=== PATIENT | male | born 1975 | race Caucasian/White ===

== ENCOUNTER 2017-06-26 19:56 | Inpatient (IN) | payer MEDICAID ==
[~2017-06-26] VITALS: Ht 180.3 cm; Wt 80.9 kg
[2017-06-27] VITALS (9 sets, daily range): BP systolic 114–136; BP diastolic 66–96
[2017-06-27] MEDS: LORazepam 2 MG TABLET PO PRN (02:30)
[2017-06-27] MEDS: ZOLPIDEM TARTRATE 10 MG TABLET PO PRN (02:30)
[2017-06-27 08:20] LABS: BASOPHILS % (AUTO) 0.3 % (0.0-2.0); EOSINOPHILS % (AUTO) 0.9 % (1.0-6.0); HEMATOCRIT 38.8 % (41-53); HEMOGLOBIN 13.4 g/dL (13.5-17.5); LYMPHOCYTES # (AUTO) 0.9 K/uL (1.0-4.8); LYMPHOCYTES % (AUTO) 11.4 % (22.0-44.0); MEAN CORPUSCULAR HEMOGLOBIN 31.7 pg (26.0-34.0); MEAN CORPUSCULAR HGB CONC 34.6 G/dL (31.0-37.0); MEAN CORPUSCULAR VOLUME 92 fL (80-100); MONOCYTES # (AUTO) 0.7 K/uL (0.1-1.0); MONOCYTES % (AUTO) 8.6 % (2.0-9.0); NEUTROPHILS # (AUTO) 6.5 K/uL (1.8-7.7); NEUTROPHILS % (AUTO) 78.8 % (40.0-70.0); PLATELET COUNT (AUTO) 162 K/uL (150-450); RED BLOOD CELL COUNT(AUTO) 4.24 MIL/uL (4.50-5.90); RED CELL DISTRIBUTION WIDTH 13.9 % (11.5-14.5); WHITE BLOOD COUNT (AUTO) 8.3 K/uL (4.5-11.0)
[2017-06-27 08:53] LABS: HEMOGLOBIN A1C 5.6 % (4.5-6.2)
[2017-06-27 08:59] LABS: ALANINE AMINOTRANSFERASE 40 U/L (12-78); ALBUMIN 3.2 g/dL (3.4-5.0); ANION GAP 9 mmol/L (8-16); ASPARTATE AMINOTRANSFERASE 26 U/L (15-37); BILIRUBIN,TOTAL 0.7 mg/dL (0.1-1.0); CALCIUM, TOTAL 8.6 mg/dL (8.8-10.5); CARBON DIOXIDE 29 mmol/L (22-29); CHLORIDE 99 mmol/L (98-107); CHOL/HDL RATIO 1.5 (4.2-7.3); CREATININE 0.61 mg/dL (0.60-1.30); GLOMERULAR FILTR. RATE CALC > 60 mL/min (>60); POTASSIUM 3.4 mmol/L (3.5-5.1); SODIUM SERUM 137 mmol/L (136-145); THYROID STIMULATING HORMONE 2.94 uIU/mL (0.36-3.74); TOTAL PROTEIN, SERUM 6.2 g/dL (6.4-8.2); UREA NITROGEN, BLOOD 15 mg/dL (7-18)
[2017-06-27] MEDS ORDERED: POTASSIUM CHLORIDE 20 MEQ ER TABLET PO ONE (13:45)
[2017-06-27] MEDS: LITHIUM CARBONATE 600 MG CAPSULE PO SCH (16:32)
[2017-06-27] MEDS ORDERED: IBUPROFEN 600 MG TABLET PO PRN (20:30)
[2017-06-27] MEDS ORDERED: ACETAMINOPHEN 325 MG TABLET PO PRN (20:30)
[2017-06-27] MEDS: QUEtiapine FUMARATE 100 MG TABLET PO PRN (21:45)
[2017-06-28 03:38] VITALS: BP 117/83
[2017-06-28 07:21] VITALS: BP 121/83
[2017-06-28 07:50] LABS: ANION GAP 9 mmol/L (8-16); CALCIUM, TOTAL 8.9 mg/dL (8.8-10.5); CARBON DIOXIDE 28 mmol/L (22-29); CHLORIDE 103 mmol/L (98-107); CREATININE 0.58 mg/dL (0.60-1.30); GLOMERULAR FILTR. RATE CALC > 60 mL/min (>60); POTASSIUM 3.9 mmol/L (3.5-5.1); SODIUM SERUM 140 mmol/L (136-145); UREA NITROGEN, BLOOD 14 mg/dL (7-18)
[2017-06-28] MEDS: LITHIUM CARBONATE 300 MG CAPSULE PO SCH (08:50)
[2017-06-28] MEDS: FLUoxetine HCL 20 MG CAPSULE PO SCH (08:51)
[2017-06-28] MEDS: QUEtiapine FUMARATE 100 MG TABLET PO PRN ×2 (08:51→23:33)
[2017-06-28] MEDS: LORazepam 2 MG TABLET PO PRN ×2 (08:51→20:27)
[2017-06-28] MEDS ORDERED: FLUO-191 PO (09:10)
[2017-06-28] MEDS ORDERED: GABA-529 PO (09:10)
[2017-06-28] MEDS ORDERED: LIB10 PO (09:10)
[2017-06-28] MEDS ORDERED: LITH300C3 PO (09:10)
[2017-06-28] MEDS: LITHIUM CARBONATE 600 MG CAPSULE PO SCH (16:09)
[2017-06-28 16:19] VITALS: BP 129/73
[2017-06-28] MEDS: ZOLPIDEM TARTRATE 10 MG TABLET PO PRN (21:07)
[2017-06-29] VITALS: BP 117/70
[2017-06-29 08:41] VITALS: BP_SYST 110; BP_SYST 145; BP_DIAS 53; BP_DIAS 91
[2017-06-29] MEDS: LITHIUM CARBONATE 300 MG CAPSULE PO SCH (08:43)
[2017-06-29] MEDS: FLUoxetine HCL 20 MG CAPSULE PO SCH (08:43)
[2017-06-29] MEDS: LITHIUM CARBONATE 600 MG CAPSULE PO SCH (16:01)
[2017-06-29] MEDS ORDERED: LITH600 PO (19:57)
[2017-06-29] MEDS ORDERED: FLUO-191 PO (19:58)
[2017-06-29] MEDS: LORazepam 2 MG TABLET PO PRN (21:25)
[2017-06-29] MEDS: ZOLPIDEM TARTRATE 10 MG TABLET PO PRN (21:25)
[2017-06-30 06:18] VITALS: BP 125/86
[2017-06-30] MEDS: LITHIUM CARBONATE 300 MG CAPSULE PO SCH (08:21)
[2017-06-30] MEDS: FLUoxetine HCL 20 MG CAPSULE PO SCH (08:21)
[2017-06-30 08:24] VITALS: BP 126/90
== END 2017-06-30 10:02 | disposition home or self-care (01) | DRG 753 ==
LOC: B2S 06-27 01:05
DX: F31.5 Bipolar disorder, current episode depressed, severe, with psychotic features (principal); R45.851 Suicidal ideations; F12.90 Cannabis use, unspecified, uncomplicated; F17.200 Nicotine dependence, unspecified, uncomplicated; E87.6 Hypokalemia; F10.10 Alcohol abuse, uncomplicated; D64.9 Anemia, unspecified; Z59.0 Homelessness; Z56.0 Unemployment, unspecified
CPT/HCPCS: 83036; 84439; 84443